=== PATIENT | male | born 2000 | race Caucasian/White ===

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

== ENCOUNTER → 2022-04-30 | Day surgery (SDC) | payer OTHER ==
[~2022-04-30] VITALS: Ht 172.7 cm; Wt 74.8 kg
[~2022-04-30] MED LIST: ZYRTEC10 M2 PO
[2022-04-30 08:01] VITALS: BP 128/80
[2022-04-30 08:32] VITALS: BP 103/46
[2022-04-30 08:47] VITALS: BP 100/45
[2022-04-30 09:02] VITALS: BP 114/69
== END | disposition home or self-care (01) ==
LOC: SDC 04-26 09:30
PROVIDERS: ATTEND Specialist
DX: H65.493 Other chronic nonsuppurative otitis media, bilateral (principal)

== ENCOUNTER → 2022-06-06 | Outpatient (CLI) | payer OTHER ==
[2022-06-08 21:06] LABS: CODFISH, IGE <0.10 kU/L (Class 0); EGG WHITE, IGE <0.10 kU/L (Class 0); MILK (COW), IGE <0.10 kU/L (Class 0); PEANUT, IGE <0.10 kU/L (Class 0); SOYBEAN, IGE <0.10 kU/L (Class 0); WHEAT, IGE <0.10 kU/L (Class 0)
[2022-06-09 06:07] LABS: ALTERNARIA ALTERNATA, IGE <0.10 kU/L (Class 0); AMERICAN ELM, IGE <0.10 kU/L (Class 0); ASPERGILLUS FUMIGATU, IGE <0.10 kU/L (Class 0); BERMUDA GRASS, IGE <0.10 kU/L (Class 0); BIRCH, COMMON SILVER IGE <0.10 kU/L (Class 0); CLADOSPORIUM HERBARU, IGE <0.10 kU/L (Class 0); D FARINAE MITE <0.10 kU/L (Class 0); D PTERONYSSINUS <0.10 kU/L (Class 0); DOG DANDER, IGE <0.10 kU/L (Class 0); MAPLE LEAF SYCAMORE, IGE <0.10 kU/L (Class 0); MAPLE/BOX ELDER, IGE <0.10 kU/L (Class 0); MOUSE URINE IGE <0.10 kU/L (Class 0); PENICILLIUM CHRYSOGENUM, IGE <0.10 kU/L (Class 0); ROUGH PIGWEED, IGE <0.10 kU/L (Class 0); SHEEP SORREL (DOCK), IGE <0.10 kU/L (Class 0); SHORT RAGWEED, IGE <0.10 kU/L (Class 0); TIMOTHY, IGE <0.10 kU/L (Class 0); WALNUT TREE, IGE <0.10 kU/L (Class 0); WHITE ASH, IGE <0.10 kU/L (Class 0); WHITE MULBERRY, IGE <0.10 kU/L (Class 0); WHITE OAK, IGE <0.10 kU/L (Class 0)
== END | disposition home or self-care (01) ==
LOC: LAB 13:53
PROVIDERS: ATTEND Specialist
DX: J30.9 Allergic rhinitis, unspecified (principal)

== ENCOUNTER → 2022-07-26 | Outpatient (CLI) | payer OTHER ==
[2022-07-26 13:31] LABS: FREE T4 1.29 ng/dl (0.89-1.76); THYROID STIM HORMONE (HS) 0.804 uIU/ml (0.550-4.780)
== END | disposition home or self-care (01) ==
LOC: LAB 12:29
PROVIDERS: ATTEND Specialist
DX: E03.9 Hypothyroidism, unspecified (principal)